=== PATIENT | female | born 1960 | race Caucasian/White ===

== ENCOUNTER 2016-08-12 09:35 | Inpatient (IN) | payer OTHER ==
[~2016-08-12 09:35] MED LIST: ATIVAN1 M2 PO; DULOXETINE HCL60 M1 PO; ENBREL50 MG/1 M1 SC; ESTRADIOL1 M1 PO; MELOXICAM15 M1 PO; TYLENOL325 M2 PO; ULTRAM50 M1 PO; XALATAN2.5 M1 EACH EYE
[2016-08-12 10:32] LABS: PROTHROMBIN TIME 12.1 SECONDS (9.0-13.6)
[2016-08-13 04:58] LABS: HCT-HEMATOCRIT 32.9 % (34.0-49.0); HGB-HEMOGLOBIN 11.1 gm/dl (12.0-15.5); IMMATURE GRANULOCYTES ABSOLUTE 0.02 tho/cmm (0-0.03); IMMATURE GRANULOCYTES PERCENT 0.2 % (0-0.3); LYMPH % 10.7 % (20-45); MCH (MEAN CORPUSCULAR HGB) 30.8 pg (28.0-32.0); MCHC MEAN CORPUSCULAR HGB CONC 33.7 % (32.0-36.0); MCV (MEAN CELL VOLUME) 91.4 fl (82.0-96.0); MEAN PLATELET VOLUME 9.5 cmc (9.4-12.4); MONO % 7.9 % (0-12); MONOCYTE ABSOLUTE COUNT 0.7 tho/cmm (0.0-1.2); NEUTROPHIL ABSOLUTE COUNT 7.5 tho/cmm (1.6-8.0); NEUTROPHIL-AUTOMATED 7.5 tho/cmm (1.6-8.0); NEUTROPHILS % 81.2 % (40-80); PLATELET COUNT 203 tho/cmm (150-450); WHITE BLOOD COUNT 9.2 tho/cmm (4.0-10.0)
[2016-08-14] MEDS ORDERED: KEFLEX500 M4 PO (10:51)
[2016-08-14] MEDS ORDERED: ASPIRIN81 M1 PO (10:54)
[2016-08-14] MEDS ORDERED: ROXICODONE5 M2 PO (11:01)
[2016-08-14] MEDS ORDERED: SENOKOT-S TABL1 EACH PO (11:03)
== END 2016-08-14 12:00 | DRG 468 ==
LOC: SHSB 09:35 → ORE 13:04 → PACU 14:30 → 5EA 15:45
PROVIDERS: ADMIT Orthopaedic Surgery Foot and Ankle Surgery
PROC: 0SRB01Z Replacement of Left Hip Joint with Metal Synthetic Substitute, Open Approach (ICD-10-PCS; principal; 2016-08-12)
PROC: 0SPB0JZ Removal of Synthetic Substitute from Left Hip Joint, Open Approach (ICD-10-PCS; 2016-08-12)
DX: T84.021A Dislocation of internal left hip prosthesis, initial encounter (principal); Y83.8 Other surgical procedures as the cause of abnormal reaction of the patient, or of later complication, without mention of misadventure at the time of the procedure; Y92.9 Unspecified place or not applicable
CPT/HCPCS: C1776; G0009; J0171; J0690; J1885; J2175; J2270; J2795; J3010; J7030